=== PATIENT | female | born 1970 | race Caucasian/White ===

== ENCOUNTER → 2021-02-09 13:46 | Outpatient (CLI) | payer BC ==
--- NOTE | ~2021-02-09 | EC ---
PATIENT:DEVYN SMALL DATE OF SERVICE: 02/09/21 SEX: F MEDICAL RECORD: [id number] DATE OF : [birth year] LOCATION:[facility] AGE OF PATIENT: 51 ADMISSION DATE: 02/09/21 REFERRING PHYSICIAN: INTERPRETING PHYSICIAN: SHERIN MENON MD ECHOCARDIOGRAM REPORT ECHO CHARGES 4 ECHO COMPLETE Date: 02/09/21 CLINICAL DIAGNOSIS: HEART MURMUR ECHOCARDIOGRAPHIC MEASUREMENTS (adult normal given) AC root (d.<3.7cm) 3.0 cm LV Septum d (<1.2 cm> 1.2 cm Valve Excursion 1.5 cm LV Septum (systole) 1.4 cm Left Atria (s.<4.0cm> 4.1 cm LVPW d(<1.2cm) 1.3 cm RV (d.<2.3cm) 3.3 cm LVPW (sytole) 1.5 cm LV diastole(<5.6CM) 4.3 cm MV E-F(>70mm/sec) cm LV systole 3.0 cm LVOT Diameter 1.9 cm MV exc.(>10mm) 1.2 cm Est.ejection fraction (50-75%) % DOPPLER: LVIT cm/sec A 57.0 cm/sec E 80.0 cm/sec LA cm/sec RVSP 33 mmHg LVOT 93 cm/sec AOP1/2T m/s Asc. Ao 130 cm/sec RVOT 68 cm/sec RA cm/sec PA 84 cm/sec AV Gradient Peak 6.77 mmHg AV Mean 3.40 mmHg AV Area 1.8 cm MV Gradient Peak 4.46 mmHg MV Mean 1.10 mmHg MV Area cm COMMENTS: Regulatory Services Consultant: 2 RONA FERNANDO Extrusion Die Corrector: 3 Dr. Stoll TAPE# PACS Pericardial Effusion N DATE OF SERVICE: Adequate 2D, color-flow imaging, spectral Doppler, and M-Mode FINDINGS: Borderline LVH. LV internal dimension is normal. Wall motion is normal. EF is greater than or equal to 55%. Aortic valve is tricuspid. No evidence of stenosis by Doppler interrogation. Left atrium is upper limits of normal to mildly dilated at 4.1 cm. Mitral valve shows no prolapse. Trace MR. Right side is grossly normal. Trace TR. ECHOCARDIOGRAM REPORT [id number] DEVYN SMALL TRANSINT:[id number] Voice Confirmation ID: [id number] DOCUMENT ID: [id number] SHERIN MENON MD CC: [id number] DICTATION DATE: 02/10/21 1019 BOOKMOBILE LIBRARIAN: 02/10/21 1548 DEP CLI 02/09/21 [place] [id number] [place] [id number]
--- NOTE | 2021-02-10 11:32 | ST ---
PATIENT:DEVYN SMALL MEDICAL RECORD: [id number] SEX: F LOCATION:[facility] ORDER #: ADMISSION DATE: 02/09/21 AGE OF PATIENT: 51 REFERRING PHYSICIAN: INTERPRETING PHYSICIAN: SHERIN MENON MD DATE OF SERVICE: 02/09/2021 TREADMILL STRESS TEST Baseline ECG is normal. Exercised for 9 minutes 30 seconds on Maurice protocol. Maximum heart rate 130 beats per minute, greater than 85% max predicted. No ECG changes of ischemia. No symptoms of ischemia. Normal blood pressure response to exercise. No arrhythmias noted. Good exercise tolerance for age. TRANSINT:[id number] Voice Confirmation ID: [id number] DOCUMENT ID: [id number] SHERIN MENON MD at 1132 CC: [id number] DICTATION DATE: 02/09/21 1609 ACCOUNTING/FINANCE TUTOR: 02/10/21 1021 DEP CLI 02/09/21 [place] [id number] [place] [address]
== END | disposition home or self-care (01) ==
LOC: D.HCCECHO 13:46
PROVIDERS: ATTEND Internal Medicine Interventional Cardiology
DX: R07.9 Chest pain, unspecified (principal); I65.29 Occlusion and stenosis of unspecified carotid artery